=== PATIENT | female | born 2000 | race Caucasian/White ===

== ENCOUNTER 2021-03-08 12:41 | Emergency (ER) | payer BC ==
--- NOTE | 2021-03-08 13:09 | EDM.PDOC ---
ED HPI GENERAL MEDICAL PROBLEM - General Chief Complaint: Lower Extremity Injury/Pain Stated Complaint: L BIG TOE SKIN COMPLAINT Time Seen by Provider: 03/08/21 12:50 Source of Information: Reports: Patient History Limitations: Reports: No Limitations - History of Present Illness INITIAL COMMENTS - FREE TEXT/NARRATIVE: 20-year-old female presents the emergency department with complaints of a left great toe ingrown toenail. She states she does have a history of this but has never had her toenail cut out by a surgical processor. She states that normally she can take the toenail out and then it slowly gets better. She states over the course of the past 2 days it has gotten more painful and red but she has not noticed any drainage. She does not have any fever or chills, nausea, vomiting or diarrhea. She states she is otherwise healthy. Treatments [employer]: Reports: Other (see below) Other Treatments [employer]: using advil Left Toe-Hailux Pain Score (Numeric/FACES): 7 - Related Data Allergies Allergy/AdvReac Type Severity Reaction Status Date / Time No Known Allergies Allergy Verified 03/08/21 12:51 Home Meds: Home Meds Control 1 tab PO DAILY 03/08/21 [History] Social & Family History - Tobacco Use Tobacco Use Status *Q: Never Tobacco User - Caffeine Use Caffeine Use: Reports: Coffee, Energy Drinks, Soda, Tea - Recreational Drug Use Recreational Drug Use: No Review of Systems - Review of Systems Review Of Systems: Comprehensive ROS is negative, except as noted in HPI. ED EXAM, GENERAL - Physical Exam Exam: See Below Exam Limited By: No Limitations General Appearance: Alert, WD/WN, No Apparent Distress Ears: Normal External Exam, Hearing Grossly Normal Nose: Normal Inspection Throat/Mouth: Normal Inspection, Normal Lips, Normal Voice, No Airway Compromise Head: Atraumatic Neck: Normal Inspection, Supple Respiratory/Chest: No Respiratory Distress, No Accessory Muscle Use Cardiovascular: Normal Peripheral Pulses, Regular Rate, Rhythm GI/Abdominal: No Distention (Female) Exam: Deferred Rectal (Female) Exam: Deferred Back Exam: Normal Inspection Extremities: Normal Inspection Neurological: Alert, Oriented, Normal Cognition Psychiatric: Normal Affect, Normal Mood Skin Exam: Warm, Dry, Intact, No Rash, Other (Increase redness noted to medial aspect of left great toenail. However, there is no drainage noted. There is no swelling or warmth noted to the area of erythema.) Lymphatic: No Adenopathy Course - Vital Signs Text/Narrative:: Patient presents with a 2-day history of pain and redness noted to medial aspect of the left great toenail. Patient has been attempting to digging and cut away at the great toenail over the course of the past 2 days. There is no drainage noted to the area. It is slightly erythematous however there is no warmth or swelling. I discussed with the patient that we do not cut out ingrown toenails here in the emergency department and recommend that she follow-up with Dr. Diez, the surgical processor at [facility]. She is agreeable to this plan. She will be discharged to home. Last Recorded V/S: Last Vital Signs Temp 97.6 F 03/08/21 12:54 Pulse 89 03/08/21 12:54 Resp 20 03/08/21 12:54 BP 128/89 03/08/21 12:54 Pulse Ox 100 03/08/21 12:54 Departure - Departure Time of Disposition: 13:07 Disposition: Home, Self-Care 01 Condition: Good Clinical Impression: Ingrown left big toenail - Discharge Information Instructions: Ingrown Toenail Referrals: PCP,None [Primary Care Provider] - Forms: ED Department Discharge Additional Instructions: You were seen in the emergency department today with an ingrown toenail of your left great toe. There is no pus noted so I do not feel that there is an indication for antibiotic. I am going to refer you to see Dr. Diez, surgical processor, at [facility]. You can call first thing Wednesday to schedule an appointment at [phone]. Recommend until then that you soak your foot in hot Epson salt baths. 3 times daily should be sufficient. Recommend that you take Tylenol 650 mg or ibuprofen 600 mg. You can alternate these 2 medications every 4 hours for the next 48 hours. Sepsis Event Note (ED) - Evaluation Sepsis Screening Result: No Definite Risk - Focused Exam Vital Signs: Vital Signs Temp Pulse Resp BP Pulse Ox 03/08/21 12:54 97.6 F 89 20 128/89 100
== END 2021-03-08 13:18 | disposition home or self-care (01) ==
LOC: JD.ED 12:41
DX: L60.0 Ingrowing nail (principal)
CPT/HCPCS: 99283